=== PATIENT | male | born 1945 | race Caucasian/White ===

== ENCOUNTER 2019-10-06 09:03 | Emergency (ER) | payer MEDICARE, OTHER ==
[2019-10-06 09:31] VITALS: BP 146/84; PULSE 89
--- NOTE | 2019-10-06 14:38 | EDM.PDOC ---
ED HPI GENERAL MEDICAL PROBLEM - General Chief Complaint: Skin Complaint Time Seen by Provider: 10/06/19 09:08 Source of Information: Reports: Patient History Limitations: Reports: No Limitations - History of Present Illness INITIAL COMMENTS - FREE TEXT/NARRATIVE: Pt. presents to ER with complaints of abscess to his upper back. He was seen in a clinic in [place] for an abscess to his upper back that was incised and drained. The physician that performed the incision and drainage has requested that the dressing be changed and that the abscess be repacked today. He did call the ER but unfortunately did not provide an order or H and P, so patient will need to be seen as an ER patient. Overall, pt. states that the discomfort his improving somewhat. Denies any fever or chills. No nausea or vomiting. No chest pain or shortness of breath. He is scheduled to see surgery next week. Onset Date: 10/06/19 Location: Reports: Back Quality: Reports: Burning Severity: Moderate Right Shoulder Pain Score (Numeric/FACES): 6 - Related Data Allergies Allergy/AdvReac Type Severity Reaction Status Date / Time No Known Allergies Allergy Verified 10/06/19 09:34 Home Meds: Home Meds Fish Oil/[place]-3 Fatty Acids [Fish Oil] 1 each PO DAILY 07/08/16 [History] hydroCHLOROthiazide [Hydrochlorothiazide] 12.5 mg PO DAILY 07/08/16 [History] Pantoprazole Sodium [Protonix] 20 mg PO DAILY 10/06/19 [History] cephALEXin [Cephalexin] 500 mg PO QID 10/06/19 [History] Past Medical History Other HEENT History: PRESBYOPIA Cardiovascular History: Reports: High Cholesterol, Hypertension Other Musculoskeletal History: LUMBAGO Other Psychiatric History: obesity Other Endocrine/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 Social & Family History - Tobacco Use Smoking Status *Q: Unknown Ever Smoked ED ROS GENERAL - Review of Systems Review Of Systems: See Below Constitutional: Reports: No Symptoms HEENT: Reports: No Symptoms Respiratory: Reports: No Symptoms Cardiovascular: Reports: No Symptoms Endocrine: Reports: No Symptoms GI/Abdominal: Reports: No Symptoms : Reports: No Symptoms Musculoskeletal: Reports: Back Pain Skin: Reports: No Symptoms Neurological: Reports: No Symptoms Psychiatric: Reports: No Symptoms Hematologic/Lymphatic: Reports: No Symptoms Immunologic: Reports: No Symptoms ED EXAM, SKIN/RASH Exam: See Below Exam Limited By: No Limitations General Appearance: Alert, WD/WN, No Apparent Distress Skin: Warm, Dry, Intact, Normal Color, Other Location, Skin: Back Characteristics: Other (large abscess noted to be incised and drained in 2 locations, appears to be packed with iodoform gauze. Some mild cellulitis noted to area.) Course - Vital Signs Last Recorded V/S: Last Vital Signs Temp 36.5 C 10/06/19 09:06 Pulse 89 10/06/19 09:06 Resp 16 10/06/19 09:06 BP 146/84 H 10/06/19 09:06 Pulse Ox 97 10/06/19 09:06 - Re-Assessments/Exams Free Text/Narrative Re-Assessment/Exam: gauze packing removed from both incisions. Small amount of material was expressed from the incision. The wounds were repacked. Departure - Departure Time of Disposition: 10:20 Disposition: Home, Self-Care 01 Clinical Impression: Abscess - Discharge Information Instructions: Skin Abscess Referrals: Tan Zavala MD [Primary Care Provider] - Forms: ED Department Discharge Additional Instructions: Have dressing changed by Dr. Ugalde. Continue with antibiotics. Tylenol and ibuprofen as needed for pain. Sepsis Event Note - Evaluation Sepsis Screening Result: No Definite Risk - Focused Exam Date Exam was Performed: 10/08/19 Time Exam was Performed: 05:21 - Assessment/Plan Plan: Have dressing changed by Dr. Ugalde. Continue with antibiotics. Tylenol and ibuprofen as needed for pain.
== END 2019-10-06 09:36 | disposition home or self-care (01) ==
LOC: VM.ED 09:03
DX: L02.212 Cutaneous abscess of back [any part, except buttock and flank] (principal); I10 Essential (primary) hypertension; E66.9 Obesity, unspecified; Z79.899 Other long term (current) drug therapy
CPT/HCPCS: 10061; 99282; 99282-GF

== ENCOUNTER 2020-11-08 09:30 | Emergency (ER) | payer MEDICARE, OTHER ==
[2020-11-08] MEDS ORDERED: Sodium Chloride 0.9% 10 ML Syringe FLUSH PRN (10:00)
[2020-11-08] MEDS ORDERED: Hydrochlorothiazide 12.5 MG Cap PO STA (10:03)
--- NOTE | 2020-11-08 10:06 | EDM.PDOC ---
ED HPI GENERAL MEDICAL PROBLEM - General Stated Complaint: elevated BP Time Seen by Provider: 11/08/20 09:50 Source of Information: Reports: Patient History Limitations: Reports: No Limitations - History of Present Illness INITIAL COMMENTS - FREE TEXT/NARRATIVE: Comes into the emergency department with complaints of elevated blood pressure. Patient states that he has noticed over the course the last 2 weeks that his blood pressure has began to rise. He has been into [facility] as well as the clinic for labs and blood pressure monitoring. He did follow-up with his primary care doctor who did not elevate any of his medications. States that he has been feeling more dizzy and headache the last 2 to 3 days as blood pressure has been higher. Patient denies any chest pain, shortness of breath, and blurred vision, CMS concerns, abdominal pain, or genitourinary concerns. Patient states that he has been on blood pressure medications now for approximately 10 to 12 years without any major adjustments in the medication. Onset: Gradual Quality: Reports: Throbbing Severity: Moderate Improves with: Reports: Other Worsens with: Reports: None Associated Symptoms: Reports: No Other Symptoms - Related Data Allergies Allergy/AdvReac Type Severity Reaction Status Date / Time No Known Allergies Allergy Verified 11/08/20 10:08 Home Meds: Home Meds hydroCHLOROthiazide [Hydrochlorothiazide] 12.5 mg PO DAILY 07/08/16 [History] Pantoprazole Sodium [Protonix] 20 mg PO DAILY 10/06/19 [History] Acetaminophen [Tylenol] 650 mg PO Q4H PRN 11/08/20 [History] Past Medical History Other HEENT History: PRESBYOPIA Cardiovascular History: Reports: High Cholesterol, Hypertension Other Musculoskeletal History: LUMBAGO Other Psychiatric History: obesity Other Endocrine/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 Constitutional: Reports: No Symptoms HEENT: Reports: No Symptoms Respiratory: Reports: No Symptoms Cardiovascular: Reports: No Symptoms Endocrine: Reports: No Symptoms GI/Abdominal: Reports: No Symptoms : Reports: No Symptoms Musculoskeletal: Reports: No Symptoms Skin: Reports: No Symptoms ED EXAM, GENERAL - Physical Exam Exam: See Below Exam Limited By: No Limitations General Appearance: Alert, WD/WN, No Apparent Distress Throat/Mouth: Normal Inspection, Normal Lips Head: Atraumatic, Normocephalic Neck: Normal Inspection, Supple, Non-Tender Respiratory/Chest: No Respiratory Distress, Lungs Clear, Normal Breath Sounds, No Accessory Muscle Use, Chest Non-Tender Cardiovascular: Normal Peripheral Pulses, Regular Rate, Rhythm, No Edema, No Murmur GI/Abdominal: Normal Bowel Sounds, Soft, Non-Tender Back Exam: Normal Inspection, Full Range of Motion Extremities: Normal Inspection, Normal Range of Motion, Non-Tender, Normal Capillary Refill Neurological: Alert, Oriented, CN II-XII Intact, Normal Cognition, Normal Gait Psychiatric: Normal Affect, Normal Mood Skin Exam: Warm, Dry, Intact, Normal Color Course - Vital Signs Last Recorded V/S: Last Vital Signs Temp 36.2 C 11/08/20 10:00 Pulse 77 11/08/20 10:00 Resp 16 11/08/20 10:00 BP 152/75 H 11/08/20 10:00 Pulse Ox 96 11/08/20 10:00 - Orders/Labs/Meds Orders: Active Orders 24 hr Category Date Time Status EKG Documentation Completion [RC] STAT Care 11/08/20 10:01 Ordered Sodium Chloride 0.9% [Saline Flush] Med 11/08/20 10:00 Ordered 10 ml FLUSH ASDIRECTED PRN Peripheral IV Insertion Adult [OM.PC] Stat Oth 11/08/20 10:00 Ordered Medication Orders Sodium Chloride (Saline Flush) 10 ml FLUSH ASDIRECTED PRN PRN Reason: Keep Vein Open Labs: Laboratory Tests 11/08/20 11/08/20 Range/Units 10:00 10:00 WBC 6.1 (4.0-10.0) x10^3/uL RBC 4.99 (4.5-6.0) x10^6/uL Hgb 15.3 (14.0-18.0) g/dL Hct 43.8 (40.0-52.0) % MCV 87.8 (78.0-93.0) fL MCH 30.7 (26.0-32.0) pg MCHC 34.9 (32.0-36.0) g/dL RDW Coeff of [place] 12.6 (10.0-15.0) % Plt Count 216 (130-400) x10^3/uL Neut % (Auto) 50.5 (50.0-80.0) % Lymph % (Auto) 29.8 (25.0-50.0) % [place] % (Auto) 14.9 H (2.0-11.0) % Eos % (Auto) 4.3 H (0.0-4.0) % Baso % (Auto) 0.5 (0.2-1.2) % Sodium 137 (136-145) mmol/L Potassium 3.5 (3.5-5.1) mmol/L Chloride 100 (98-107) mmol/L Carbon Dioxide 28 (21-32) mmol/L Anion Gap 12.5 (5-15) mmol/L BUN 16 (7-18) mg/dL Creatinine 1.1 (0.70-1.30) mg/dL Est Cr Clr Drug Dosing 57.86 mL/min Estimated GFR (MDRD) > 60 Glucose 161 H (74-106) mg/dL Calcium 8.8 (8.5-10.1) mg/dL Corrected Calcium 9.12 (8.5-10.1) mg/dL Total Bilirubin 0.5 (0.2-1.0) mg/dL AST 21 (15-37) U/L ALT 29 (16-63) U/L Alkaline Phosphatase 71 (46-116) U/L NT-Pro-B Natriuret Pep 37 (<=125) pg/mL Total Protein 8.3 H (6.4-8.2) g/dL Albumin 3.6 (3.4-5.0) g/dL Globulin 4.7 Albumin/Globulin Ratio 0.77 Meds: Medications Generic Name Dose Route Start Last Admin Trade Name Freq PRN Reason Stop Dose Admin Sodium Chloride 10 ml 11/08/20 10:00 Saline Flush FLUSH ASDIRECTED PRN Keep Vein Open Discontinued Medications Generic Name Dose Route Start Last Admin Trade Name Freq PRN Reason Stop Dose Admin Hydrochlorothiazide 12.5 mg 11/08/20 10:03 Hydrochlorothiazide PO 11/08/20 10:04 NOW STA - Re-Assessments/Exams Free Text/Narrative Re-Assessment/Exam: 11/08/20 11:00 blood pressure at discharge decreased. Pt more relaxed and symptoms resolving. Pt is ready for discharge. Departure - Departure Time of Disposition: 11:00 Disposition: Home, Self-Care 01 Condition: Good Clinical Impression: Hypertensive heart disease - Discharge Information *PRESCRIPTION DRUG MONITORING PROGRAM REVIEWED*: Not Applicable *COPY OF PRESCRIPTION DRUG MONITORING REPORT IN PATIENT SHABNAM: Not Applicable Instructions: Hypertension, Adult, [id number] Forms: ED Department Discharge Additional Instructions: 1. rest 2. increase your water intake 3. Continue all at home medications. take 1 extra hydrochlorothiazide 12.5mg daily (total daily dose 25mg) for the next three days and follow up in the clinic Tuesday 4. Activity and diet as tolerated 5. Can take over the counter Tylenol for any pain or discomfort 6. Follow up with PCP if symptoms continue, return, or progress 7. Call with any questions or concerns Sepsis Event Note (ED) - Focused Exam Vital Signs: Vital Signs Temp Pulse Resp BP Pulse Ox 11/08/20 10:00 36.2 C 77 16 152/75 H 96 - My Orders Last 24 Hours: My Active Orders 11/08/20 10:00 Sodium Chloride 0.9% [Saline Flush] 10 ml FLUSH ASDIRECTED PRN Peripheral IV Insertion Adult [OM.PC] Stat 11/08/20 10:01 EKG Documentation Completion [RC] STAT - Assessment/Plan Last 24 Hours: My Active Orders 11/08/20 10:00 Sodium Chloride 0.9% [Saline Flush] 10 ml FLUSH ASDIRECTED PRN Peripheral IV Insertion Adult [OM.PC] Stat 11/08/20 10:01 EKG Documentation Completion [RC] STAT Assessment:: 1. elevated blood pressure Plan: 1. Labs completed in the ER. Results reviewed with the patient 2. IV initiated in the emergency department 3. IV fluids provided 4. Patient would like something done regarding his medication. Hydrochlorothiazide 12.5mg PO. Patient takes 12.5mg daily at home. 5. EKG was completed in ER. Results reviewed with the patient 6. Patient and nursing staff was updated regarding the plan of care 7. Records reviewed from the clinic this past week. WBC 7.0, NA, 137, K 3.6, A1C 6.3 8. Education provided the patient regarding activity, diet, rest, [id number] medication modalities, and follow-up care was provided 9. Patient and family are agreeable to the above plan of care 10. All questions and concerns were addressed with the patient and family prior to discharge
[2020-11-08 10:38] LABS: CHLORIDE,CL 100 mmol/L (98-107); SODIUM,NA 137 mmol/L (136-145)
[2020-11-08 10:42] LABS: ANION GAP 12.5 mmol/L (5-15)
[2020-11-08 12:27] VITALS: BP 158/80; PULSE 72
== END 2020-11-08 11:05 | disposition home or self-care (01) ==
LOC: VM.ED 09:30
DX: I11.9 Hypertensive heart disease without heart failure (principal); E66.9 Obesity, unspecified; Z68.31 Body mass index [BMI] 31.0-31.9, adult; Z79.899 Other long term (current) drug therapy
CPT/HCPCS: 36415; 80053; 83880; 85025; 93005; 99284; 99284-25